=== PATIENT | female | born 1950 ===

== ENCOUNTER 2025-07-31 08:44 | Outpatient (REF) | payer BC, SELFPAY | END 2025-07-31 08:45 | disposition home or self-care (01) | LOC: HO.HPHYSR 08:44 | PROVIDERS: PCP Internal Medicine; Visit Provider Physical Medicine & Rehabilitation | DX: M54.16 Radiculopathy, lumbar region (principal) | CPT/HCPCS: 64483; J2003; J3301; Q9967 ==

== ENCOUNTER 2025-07-31 08:44 | Outpatient (AMB) | payer BC, SELFPAY ==
[2025-07-31 08:51] VITALS: BP 149/82; PULSE 63; TEMP 36.4; BMI 25.8
--- NOTE | 2025-07-31 08:51 | A.PHYSOV ---
Vital Signs 07/31/25 08:51 Height 5 ft 8 in Weight 170 lb BMI 25.8 BP 149/82 H Pulse 63 Temp 97.6 F Intake Visit Reasons: Bilateral Lumbar Transforaminal Epidural L3 Intake Note: Patient is a 75 year old female in the office today for bilateral l3 transforaminal epidural injection. 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 Allergies No Known Allergies Allergy (Verified 07/31/25 08:49) [facility] Medical History (Updated 07/31/25 @ 08:57 by Gentry Ellington DO) Lumbar radiculitis Surgical History (Updated 07/31/25 @ 08:52 by Jessica Aviles MA) History of lung surgery History of cataract surgery H/O tubal ligation Social History (Updated 07/27/25 @ 11:32 by Jessica Aviles MA) Alcohol intake: current Alcohol intake frequency: holidays/special occasions only Patient Tobacco Use Status: Former Tobacco user Current occupational status: retired Physical Exam Vital Signs: Last Vital Signs Temp 97.6 F 07/31/25 08:51 Pulse 63 07/31/25 08:51 BP 149/82 H 07/31/25 08:51 BMI result Body Mass Index 25.8 Office Procedures Procedure Details: Procedure performed: Bilateral L3 transforaminal epidural steroid injection Preop diagnosis: Lumbar radiculitis Postop diagnosis: The same Anesthesia: Local After informed consent was obtained, patient was placed on the procedure table in a prone position. Skin over lumbosacral area was prepped and draped in usual sterile manner. Right L3 pedicle was visualized utilizing fluoroscopy. 3.5 inch 22 gauge spinal needle was introduced percutaneously and advanced towards the pedicle at about 6 o'clock position. Once level of neural foramina was reached, needle placement was verified utilizing 3 cc of Omnipaque contrast solution. Excellent flow through the neural foramina and epidural spread was identified without evidence of vascular uptake. Total volume of 6 cc containing 2 cc of 1% lidocaine, 40 mg of triamcinolone and normal saline solution were injected after negative aspiration for blood and cerebrospinal fluid. Identical procedure was repeated on the opposite side. Radiation exposure was documented in the chart. Lumbar transforaminal Epidural Steroid Inj- use with FL Gd: 11544 - Single (Bilateral procedure) Procedure code (CPT) selection complete Office Meds Kenalog 40 mg/mL suspension for injection Performing Provider: Gentry Ellington DO Performing Location: [facility] Administered by: Gentry Ellington DO on 07/31/25 09:27 Dose Route Admin Location Dispensed Lot Number Expiration Date [facility] Application [employer] 80 mg epidural 2 mL [address]-6 [employer] Total Dispensed Waste 2 mL 0 % lidocaine (PF) 10 mg/mL (1 %) injection solution Performing Provider: Gentry Ellington DO Performing Location: [facility] Administered by: Gentry Ellington DO on 07/31/25 09:27 Dose Route Admin Location Dispensed Lot Number Expiration Date [facility] Application [employer] 50 mg epidural 5 mL 58680-089-05 [employer] Total Dispensed Waste 5 mL 0 % Omnipaque 300 300 mg iodine/mL intravenous solution Performing Provider: Gentry Ellington DO Performing Location: [facility] Administered by: Gentry Ellington DO on 07/31/25 09:27 Dose Route Admin Location Dispensed Lot Number Expiration Date [facility] Application [employer] 3 mL epidural 10 mL [id number] [employer] Total Dispensed Waste 10 mL 70 % Assessment & Plan Assessment & Plan (1) Lumbar radiculitis: Code(s): M54.16 - Radiculopathy, lumbar region Category: Medical Plan: Procedure Plan Procedure Orders: Orders [place] Gd Lumbar Transforaminal In Today M54.16 - Radiculopathy, lumbar region AMB Lumbar transforaminal Epidural Steroid Injection Today M54.16 - Radiculopathy, lumbar region Coding Level of Care Code Procedure Only Diagnoses Lumbar radiculitis M54.16 CPT Codes Lumbar transforaminal Epidural Steroid I - CPT TRANSFORM: 79090 - SingleBilateral procedure ([id number])
== END 2025-07-31 09:29 | disposition home or self-care (01) ==
LOC: HO.HPHYS 08:44
PROVIDERS: PCP Internal Medicine; Visit Provider Physical Medicine & Rehabilitation
DX: M54.16 Radiculopathy, lumbar region (principal)
CPT/HCPCS: 64483